=== PATIENT | female | born 1945 | race Caucasian/White ===

== ENCOUNTER 2017-11-06 14:00 | Emergency (ER) | payer MEDICARE, BC ==
[2017-11-06 17:42] VITALS: BP 123/64
--- NOTE | 2017-11-06 18:08 | UC ---
Throat Pain/Nasal Brice HPI - History of Current Complaint Chief Complaint: UCGeneralIllness Stated Complaint: SINUS COMPLAINT Time Seen by Provider: 11/06/17 18:02 - Allergies/Home Medications Allergies/Adverse Reactions: Allergies Allergy/AdvReac Type Severity Reaction Status Date / Time Clindamycin Allergy GI Upset Verified 11/06/17 15:10 Doxycycline Allergy See Comment Verified 11/06/17 15:10 Meperidine [From Demerol HCl] Allergy Hallucinati Verified 11/06/17 15:10 ons Penicillins [PCN] Allergy See Comment Verified 11/06/17 15:10 PMH/Surg Hx/FS Hx/Imm Hx - Surgical History Surgical History: Yes Surgery Procedure, Year, and Place: Hysterectomy. bilat knee replacements. cataracts - Family History Known Family History: Positive: None - Social History Alcohol Use: None Substance Use Type: None Smoking Status (MU): Never Smoked Tobacco - Immunization History Most Recent Influenza Vaccination: NOT CURRENT Most Recent Pneumonia Vaccination: NEVER Physical Exam Vital Signs: Initial Vital Signs Temp 97.4 F 11/06/17 15:04 Pulse 77 11/06/17 15:04 Resp 16 11/06/17 15:04 BP 150/61 11/06/17 15:04 Pulse Ox 99 11/06/17 15:04 Discharge - Discharge Plan Referrals: Stacie Kaye MD [Primary Care Provider] -
== END 2017-11-06 18:32 | disposition home or self-care (01) ==
LOC: UCCORT 14:00
DX: R07.0 Pain in throat (principal); R09.81 Nasal congestion; Z88.0 Allergy status to penicillin; Z88.1 Allergy status to other antibiotic agents; Z88.5 Allergy status to narcotic agent
CPT/HCPCS: 99212; G0463

== ENCOUNTER 2018-02-04 14:16 | Emergency (ER) | payer MEDICARE, BC ==
[2018-02-04 15:05] VITALS: BP 116/54
--- NOTE | 2018-02-04 15:21 | UC ---
Throat Pain/Nasal Brice HPI - HPI Summary HPI Summary: Pt c/o sinus congestion, pain and pressure X 2 weeks. Has history of sinusitis - History of Current Complaint Chief Complaint: UCGeneralIllness Stated Complaint: SINUS COMPLAINT Time Seen by Provider: 02/04/18 15:15 Hx Obtained From: Patient ?: No Onset/Duration: Gradual Onset, Lasting Weeks, Still Present, Worse Since - onset Severity: Moderate Pain Intensity: 4 Associated Signs & Symptoms: Positive: Sinus Discomfort Related History: Seasonal Allergies - Epiglottits Risk Factors Epiglottis Risk Factors: Negative - Allergies/Home Medications Allergies/Adverse Reactions: Allergies Allergy/AdvReac Type Severity Reaction Status Date / Time clindamycin Allergy GI Upset Verified 02/04/18 15:00 doxycycline Allergy GI Upset Verified 02/04/18 15:00 meperidine [From Demerol] Allergy Hallucinati Verified 02/04/18 15:00 ons Penicillins Allergy Unknown Verified 02/04/18 15:00 Reaction Details Home Medications: Home Medications Aspirin [Lo-Dose Aspirin EC] 81 mg PO 02/04/18 [History] Lutein 20 mg PO 02/04/18 [History] Ubidecarenone [Co Q-10] 02/04/18 [History] PMH/Surg Hx/FS Hx/Imm Hx Previously Healthy: Yes - Surgical History Surgical History: Yes Surgery Procedure, Year, and Place: Hysterectomy. bilat knee replacements. cataracts - Family History Known Family History: Positive: Cardiac Disease - Social History Occupation: Employed Full-time Alcohol Use: None Substance Use Type: None Smoking Status (MU): Never Smoked Tobacco Have You Smoked in the Last Year: No - Immunization History Most Recent Influenza Vaccination: NOT CURRENT Most Recent Pneumonia Vaccination: NEVER Review of Systems Constitutional: Negative Skin: Negative Eyes: Negative ENT: Sinus Congestion, Sinus Pain/Tenderness Respiratory: Negative Cardiovascular: Negative Gastrointestinal: Negative Genitourinary: Negative Motor: Negative Neurovascular: Negative Musculoskeletal: Negative Neurological: Headache Psychological: Negative Is Patient Immunocompromised?: No All Other Systems Reviewed And Are Negative: Yes Physical Exam Triage Information Reviewed: Yes Appearance: Well-Appearing Vital Signs: Initial Vital Signs Temp 98.6 F 02/04/18 14:51 Pulse 76 02/04/18 14:51 Resp 18 02/04/18 14:51 BP 116/54 02/04/18 14:51 Pulse Ox 99 02/04/18 14:51 Vital Signs Reviewed: Yes Eye Exam: Normal ENT: Positive: Nasal congestion, Sinus tenderness Dental Exam: Normal Neck exam: Normal Respiratory Exam: Normal Cardiovascular Exam: Normal Musculoskeletal Exam: Normal Neurological Exam: Normal Psychological Exam: Normal Skin Exam: Normal Throat Pain/Nasal Course/Dx - Differential Dx/Diagnosis Differential Diagnosis/HQI/PQRI: Influenza, Sinusitis, URI Provider Diagnoses: sinusitis Discharge - Sign-Out/Discharge Documenting (check all that apply): Discharge - Discharge Plan Condition: Stable Disposition: HOME Prescriptions: Doxycycline Monohydrate 100 mg PO Q12H #20 capsule Patient Education Materials: Sinusitis (ED) Referrals: Stacie Kaye MD [Primary Care Provider] - If Needed Additional Instructions: Please follow up with your PCP or return to clinic as needed. - Billing Disposition and Condition Condition: STABLE Disposition: HOME
== END 2018-02-04 15:31 | disposition home or self-care (01) ==
LOC: UCCORT 14:16
DX: J32.9 Chronic sinusitis, unspecified (principal); Z88.0 Allergy status to penicillin; Z88.3 Allergy status to other anti-infective agents; Z88.5 Allergy status to narcotic agent
CPT/HCPCS: 99212; G0463